=== PATIENT | male | born 1955 | race Hispanic/Latino ===

== ENCOUNTER 2019-08-05 14:49 | Emergency (ER) | payer OTHER ==
--- NOTE | 2019-08-05 17:21 | RAD REPORT ---
EXAM DESCRIPTION: RAD - Humerus Left - 08/05/2019 4:50 pm CLINICAL HISTORY: PAIN COMPARISON: No comparisons FINDINGS: Osteoarthritic changes are present, mild, in the left shoulder and left elbow. No acute fr acture or dislocation seen.
--- NOTE | 2019-08-05 17:27 | EDPHYS ---
Physician Documentation [facility] Name: Max Fisher Age: 64 yrs Sex: Male : 1955 Arrival Date: 08/05/2019 Time: 15:00 Bed 27 Private MD: ED Physician Misael Fuentes HPI: 08/05 17:05 This 64 yrs old Male presents to ER via Ambulatory with complaints of Shoulder kb Injury. 17:05 The patient or guardian complains of decreased range of motion, pain, tenderness. left kb shoulder. Context: The problem was sustained outdoors, resulted from lifting or carrying, a heavy object, The patient experiences decreased range of motion, The patient reports no obvious deformity. Onset: The symptoms/episode began/occurred just prior to arrival. Modifying factors: the symptoms are alleviated by nothing. The symptoms are aggravated by movement. Associated signs and symptoms: Pertinent positives: severe pain. Severity of symptoms: At their worst the symptoms were moderate, in the emergency department the symptoms are unchanged. Treatment prior to arrival includes: no previous treatment. The patient has not experienced similar symptoms in the past. The patient has not recently seen a physician. 17:07 Pt reports he needed to lift a box fan into his son's lifted truck and was unable to kb just lift it up so he swung it up and felt a tear in left upper arm. Historical: - Allergies: 15:16 No Known Allergies; hb - PMHx: 15:16 Diabetes - NIDDM; hb - Immunization history:: Adult Immunizations up to date. - Coronavirus screen:: The patient has NOT traveled to [place], [place], or [place] in the past 14 days. The patient has NOT had contact with known/suspected case of Coronavirus? Proceed with normal triage procedures. - Social history:: Smoking status: Patient denies any tobacco usage or history of. - Ebola Screening: : No symptoms or risks identified at this time. ROS: 17:05 Constitutional: Negative for fever, chills, and weight loss, ENT: Negative for injury, kb pain, and discharge, Neck: Negative for injury, pain, and swelling, Cardiovascular: Negative for chest pain, palpitations, and edema, Respiratory: Negative for shortness of breath, cough, wheezing, and pleuritic chest pain, Abdomen/GI: Negative for abdominal pain, nausea, vomiting, diarrhea, and constipation, Back: Negative for injury and pain, Skin: Negative for injury, rash, and discoloration, Neuro: Negative for headache, weakness, numbness, tingling, and seizure. 17:05 MS/extremity: Positive for decreased range of motion, pain, tenderness, of the left upper arm and anterior aspect of left shoulder. Exam: 17:04 Constitutional: This is a well developed, well nourished patient who is awake, alert, kb and in no acute distress. Head/Face: Normocephalic, atraumatic. ENT: Nares patent. No nasal discharge, no septal abnormalities noted. Tympanic membranes are normal and external auditory canals are clear. Oropharynx with no redness, swelling, or masses, exudates, or evidence of obstruction, uvula midline. Mucous membranes moist. Neck: Trachea midline, no thyromegaly or masses palpated, and no cervical lymphadenopathy. Supple, full range of motion without nuchal rigidity, or vertebral point tenderness. No Meningismus. Chest/axilla: Normal chest wall appearance and motion. Nontender with no deformity. No lesions are appreciated. Cardiovascular: Regular rate and rhythm with a normal S1 and S2. No gallops, murmurs, or rubs. Normal PMI, no JVD. No pulse deficits. Respiratory: Lungs have equal breath sounds bilaterally, clear to auscultation and percussion. No rales, rhonchi or wheezes noted. No increased work of breathing, no retractions or nasal flaring. Abdomen/GI: Soft, non-tender, with normal bowel sounds. No distension or tympany. No guarding or rebound. No evidence of tenderness throughout. Skin: Warm, dry with normal turgor. Normal color with no rashes, no lesions, and no evidence of cellulitis. Neuro: Awake and alert, GCS 15, oriented to person, place, time, and situation. Cranial nerves II-XII grossly intact. Motor strength 5/5 in all extremities. Sensory grossly intact. Cerebellar exam normal. Normal gait. 17:04 Musculoskeletal/extremity: Extremities: grossly normal except: noted in the anterior aspect of left shoulder and left upper arm: decreased ROM, pain, tenderness, ROM: limited active range of motion due to pain, in the anterior aspect of left shoulder, Circulation is intact in all extremities. Sensation intact. Vital Signs: 15:16 BP 152 / 84; Pulse 77; Resp 16; Temp 98.2; Pulse Ox 100% on R/A; Weight 96.62 kg; hb Height 5 ft. 10 in. (177.80 cm); Pain 8/10; 17:40 BP 142 / 80; Pulse 72; Resp 16; Pulse Ox 100% on R/A; sg 15:16 Body Mass Index 30.56 (96.62 kg, 177.80 cm) hb MDM: 16:29 Patient medically screened. kb 16:30 Data reviewed: vital signs, nurses notes. Data interpreted: Pulse oximetry: on room air kb is 100 %. Interpretation: normal. 17:06 Counseling: I had a detailed discussion with the patient and/or guardian regarding: the kb historical points, exam findings, and any diagnostic results supporting the discharge/admit diagnosis, radiology results, the need for outpatient follow up, a orthopedic surgeon, to return to the emergency department if symptoms worsen or persist or if there are any questions or concerns that arise at home. 08/05 16:48 Order name: Humerus Left; Complete Time: 17:23 EDOR 08/05 17:26 Order name: Sling; Complete Time: 17:44 kb Administered Medications: 17:40 Drug: Jamison (7.5 mg-325 mg) 1 tabs Route: PO; sg Disposition: 08/05/19 17:26 Discharged to Home. Impression: Pain in left shoulder, Pain in left upper arm. - Condition is Stable. - Discharge Instructions: Musculoskeletal Pain, Shoulder Pain, [id number]. - Prescriptions for Cyclobenzaprine 10 mg Oral Tablet - take 1 tablet by ORAL route every 8 hours As needed; 21 tablet. Diclofenac Sodium 75 mg Oral Tablet, Delayed Release (E.C.) - take 1 tablet by ORAL route 2 times per day As needed; 30 tablet. - Medication Reconciliation Form, Thank You Letter, Antibiotic Education, Prescription Opioid Use form. - Follow up: Emergency Department; When: As needed; Reason: Worsening of condition. Follow up: Private Physician; When: 2 - 3 days; Reason: Recheck today's complaints, Continuance of care, Re-evaluation by your physician. Addendum: 08/06/2019 21:17 Co-signature as Attending Physician, Misael Fuentes MD I agree with the assessment and k dr plan of care. Signatures: Dispatcher [employer] [facility] Marialuisa Moreno, ASSISTANT PROPERTY MANAGER-C ASSISTANT PROPERTY MANAGER-Ckb Oscar Garcia, RN RN sg Misael Fuentes MD MD [facility] Sally Mo, RN RN Corrections: (The following items were deleted from the chart) 08/05 16:48 16:03 Shoulder Left 2 View+RAD.RAD.BRZ ordered. [facility] 17:44 17:26 08/05/2019 17:26 Discharged to Home. Impression: Pain in left shoulder; Pain in sg left upper arm. Condition is Stable. Discharge Instructions: Musculoskeletal Pain, Shoulder Pain, [id number]-[id number]. Prescriptions for Cyclobenzaprine 10 mg Oral Tablet - take 1 tablet by ORAL route every 8 hours As needed; 21 tablet, Diclofenac Sodium 75 mg Oral Tablet, Delayed Release (E.C.) - take 1 tablet by ORAL route 2 times per day As needed; 30 tablet. and Forms are Medication Reconciliation Form, Thank You Letter, Antibiotic Education, Prescription Opioid Use. Follow up: Emergency Department; When: As needed; Reason: Worsening of condition. Follow up: Private Physician; When: 2 - 3 days; Reason: Recheck today's complaints, Continuance of care, Re-evaluation by your physician. kb
--- NOTE | 2019-08-05 17:27 | ER ---
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 Transition hb of care: patient was not received from another setting of care. Onset of symptoms was August 05, 2019. Risk Assessment: Do you want to hurt yourself or someone else? Patient reports no desire to harm self or others. Initial Sepsis Screen: Does the patient meet any 2 criteria? No. Patient's initial sepsis screen is negative. Does the patient have a suspected source of infection? No. Patient's initial sepsis screen is negative. Care prior to arrival: None. 15:15 Method Of Arrival: Ambulatory hb 15:15 Acuity: SIERRA 4 hb Historical: - Allergies: 15:16 No Known Allergies; hb - PMHx: 15:16 Diabetes - NIDDM; hb - Immunization history:: Adult Immunizations up to date. - Coronavirus screen:: The patient has NOT traveled to [place], [place], or [place] in the past 14 days. The patient has NOT had contact with known/suspected case of Coronavirus? Proceed with normal triage procedures. - Social history:: Smoking status: Patient denies any tobacco usage or history of. - Ebola Screening: : No symptoms or risks identified at this time. Screenin:00 Abuse screen: Denies threats or abuse. Denies injuries from another. Nutritional sg screening: No deficits noted. Tuberculosis screening: No symptoms or risk factors identified. Never had TB. Fall Risk None identified. Assessment: 17:00 General: Appears in no apparent distress. well groomed, well developed, well nourished, sg Behavior is calm, cooperative, appropriate for age. Pain: Pain: Complains of pain in left shoulder Quality of pain is described as aching. Neuro: Level of Consciousness is awake, alert, obeys commands, Oriented to person, place, time, Logging Engineer are equal bilaterally Moves all extremities. Cardiovascular: Patient's skin is warm and dry. Chest pain is denied. Respiratory: Airway is patent Respiratory effort is even, unlabored, Respiratory pattern is regular, symmetrical. GI: No signs and/or symptoms were reported involving the gastrointestinal system. : No signs and/or symptoms were reported regarding the genitourinary system. EENT: No signs and/or symptoms were reported regarding the EENT system. Derm: Skin is pink, warm \T\ dry. Musculoskeletal: Circulation, motion, and sensation intact. Range of motion: intact in all extremities, Reports pain in left shoulder. Vital Signs: 15:16 BP 152 / 84; Pulse 77; Resp 16; Temp 98.2; Pulse Ox 100% on R/A; Weight 96.62 kg; hb Height 5 ft. 10 in. (177.80 cm); Pain 8/10; 17:40 BP 142 / 80; Pulse 72; Resp 16; Pulse Ox 100% on R/A; sg 15:16 Body Mass Index 30.56 (96.62 kg, 177.80 cm) hb ED Course: 15:00 Patient arrived in ED. es 15:16 Triage completed. hb 15:16 Arm band placed on. hb 15:23 Marialuisa Moreno FNP-C is PHCP. kb 15:23 Misael Fuentes MD is Attending Physician. kb 16:51 Humerus Left In Process Unspecified. EDMS 16:52 Oscar Garcia, RN is Primary Nurse. sg 17:00 Patient has correct armband on for positive identification. Bed in low position. Call sg light in reach. Side rails up X2. Pulse ox on. NIBP on. Head of bed elevated. 17:40 No provider procedures requiring assistance completed. Patient did not have IV access sg during this emergency room visit. 17:40 Sling applied to left arm. applied by [employer] sg Administered Medications: 17:40 Drug: Radford (7.5 mg-325 mg) 1 tabs Route: PO; sg Outcome: 17:26 Discharge ordered by . kb 17:40 Discharged to home ambulatory, with family. sg 17:40 Condition: good 17:40 Discharge instructions given to patient, Instructed on discharge instructions, follow up and referral plans. medication usage, safety practices, Demonstrated understanding of instructions, follow-up care, medications, Prescriptions given X 2. 17:44 Patient left the ED. sg Signatures: Dispatcher [employer] [facility] Marialuisa Moreno FNP-C FNP-Oscar Parson, RN RN sg Renu Bergeron Heather, RN RN hb
[2019-08-05] MEDS ORDERED: HYDROCODONE/APAP 7.5/325 MG TAB ONE (17:34)
[2019-08-05 17:49] VITALS: BP 152/84; TEMP 98.2; O2SAT 100
== END 2019-08-05 17:44 | disposition home or self-care (01) ==
LOC: ER 14:49
DX: M25.512 Pain in left shoulder (principal); M79.622 Pain in left upper arm; X50.0XXA Overexertion from strenuous movement or load, initial encounter; Y93.9 Activity, unspecified; Y92.9 Unspecified place or not applicable
CPT/HCPCS: 99284

== ENCOUNTER 2019-10-19 13:28 | Emergency (ER) | payer OTHER ==
--- OUTSIDE RECORDS SUMMARY | 2019-10-19 14:16 | XMS REPORT ---
:1955 Author Organization [facility] t Address [address] [place] [address] Care Team Providers Name Role Phone LAURO LARIOS Unavailable Unavailable Problems This patient has no known problems. Allergies, Adverse Reactions, Alerts This patient has no known allergies or adverse reactions. Medications This patient has no known medications. Results Test Description Test Time Test Comments Text Results Atomic Results Result Comments POCT-GLUCOSE METER 2019-09-19 12:34:00 Test Item Value Reference Range Comments POC-GLUCOSE METER (BEAKER) 147 mg/dL 70-110 : Not ified RN/MD: TESTED AT [place] [address] (test code = 1538) [facility] [address]: Electrical And Instrument Engineer/Technic ml ID = [id number] for [facility] POCT-GLUCOSE [id number] 11:21:00 Test Item Value Reference Range Comments POC-GLUCOSE METER (BEAKER) 155 mg/dL 70-110 : Not ified RN/MD: TESTED AT (test code = 1538) [facility] [address] [facility] [address] : Electrical And Instrument Engineer/Technic ml ID = [id number] for Liberty Barnhart POCT-GLUCOSE [id number] 06:56:00 Test Item Value Reference Range Comments POC-GLUCOSE METER (BEAKER) 98 mg/dL 70-110 : MARLEY JOHNNY AT [facility] [address] (test code = 1538) [facility] [address]: Electrical And Instrument Engineer/Technic ml ID = [id number] for NETO QUEEN
[2019-10-19 15:09] LABS: Absolute Lymphocytes (CBC) 2.2 K/uL (0.7-4.9); Basophils % 0.6 % (0-1.3); Hematocrit 41.4 % (39.6-49.0); Lymphocytes % 21.2 % (15.3-44.8); MPV 7.6 fL (7.6-11.3); RBC Red Blood Cell Count 4.51 M/uL (4.33-5.43)
[2019-10-19] MEDS ORDERED: NA CHLORIDE 0.9% 1,000 ML ONE (15:11)
[2019-10-19 15:20] LABS: Potassium 3.9 mmol/L (3.5-5.1)
--- NOTE | 2019-10-19 16:41 | ER ---
Nurse's Notes [facility] Name: Max Fisher Age: 64 yrs Sex: Male : 1955 Arrival Date: 10/19/2019 Time: 13:30 Bed 16 Private MD: Diagnosis: Dizziness and giddiness;Dehydration;Renal Failure - Chronic Presentation: 10/18 14:05 Chief complaint: Patient states: dizziness while standing that began 2 days ago and low aa5 BP readings today, pt reports lowest reading was 71/42 at 1248 today. Pt states "I just had surgery on my left shoulder about 4 weeks ago at [facility] and I am taking muscle relaxants and pain medicine". 14:05 Coronavirus screen: Proceed with normal triage. Ebola Screen: Patient negative for aa5 fever greater than or equal to 101.5 degrees Fahrenheit, and additional compatible Ebola Virus Disease symptoms. Initial Sepsis Screen: Does the patient meet any 2 criteria? No. Patient's initial sepsis screen is negative. Does the patient have a suspected source of infection? No. Patient's initial sepsis screen is negative. Risk Assessment: Do you want to hurt yourself or someone else? Patient reports no desire to harm self or others. 14:05 Method Of Arrival: Ambulatory aa5 14:05 Onset of symptoms was October 2019. aa5 14:05 Acuity: SIERRA 3 aa5 Historical: - Allergies: 14:15 No Known Allergies; aa5 - PMHx: 14:15 Diabetes - NIDDM; Hypertension; aa5 - PSHx: 14:15 L shoulder; Right shoulder; aa5 - Immunization history:: Flu vaccine is up to date. - Social history:: Smoking status: Patient denies any tobacco usage or history of. Screenin:02 Abuse screen: Denies threats or abuse. Denies injuries from another. Nutritional ca1 screening: No deficits noted. Tuberculosis screening: No symptoms or risk factors identified. Fall Risk IV access (20 points). Assessment: 15:02 General: Appears in no apparent distress. comfortable, Behavior is calm, cooperative, ca1 appropriate for age. Pain: Denies pain. Neuro: Level of Consciousness is awake, alert, obeys commands, Oriented to person, place, time, situation, Appropriate for age Reports dizziness. Neuro: Reports. Cardiovascular: Heart tones S1 S2 present Capillary refill < 3 seconds Patient's skin is warm and dry. Respiratory: Airway is patent Respiratory effort is even, unlabored, Respiratory pattern is regular, symmetrical. GI: Abdomen is round non-distended, Bowel sounds present X 4 quads. Abd is soft and non tender X 4 quads. Reports nausea. : No signs and/or symptoms were reported regarding the genitourinary system. EENT: No signs and/or symptoms were reported regarding the EENT system. Derm: Skin is intact, is healthy with good turgor, Skin is pink, warm \\T\\ dry. Musculoskeletal: Circulation, motion, and sensation intact. Capillary refill < 3 seconds, Pt has a sling on L shoulder from a surgery a week ago. 15:43 Reassessment: Patient appears in no apparent distress at this time. Patient and/or ca1 family updated on plan of care and expected duration. Pain level reassessed. Patient is alert, oriented x 3, equal unlabored respirations, skin warm/dry/pink. 16:28 Reassessment: Patient appears in no apparent distress at this time. Patient and/or ca1 family updated on plan of care and expected duration. Pain level reassessed. Patient is alert, oriented x 3, equal unlabored respirations, skin warm/dry/pink. Dr. Fuentes at bedside. 17:23 Reassessment: Patient appears in no apparent distress at this time. Patient is alert, ca1 oriented x 3, equal unlabored respirations, skin warm/dry/pink. Patient states feeling better. Vital Signs: 14:05 BP 103 / 72; Pulse 86; Resp 18 S; Temp 98.8(O); Pulse Ox 97% on R/A; Weight 94.35 kg aa5 (R); Height 5 ft. 10 in. (177.80 cm) (R); 15:14 BP 116 / 65 Supine; Pulse 76; Resp 18 S; Pulse Ox 100% on R/A; ca1 15:16 BP 110 / 65 Sitting; Pulse 76; Resp 18 S; Pulse Ox 100% on R/A; ca1 15:18 BP 105 / 63 Standing; Pulse 76; Resp 17 S; Pulse Ox 99% on R/A; ca1 15:45 BP 107 / 70; Pulse 78; Resp 18 S; Pulse Ox 100% on R/A; ca1 16:28 BP 106 / 70; Pulse 79; Resp 17 S; Pulse Ox 98% on R/A; ca1 17:23 BP 107 / 72; Pulse 76; Resp 16 S; Pulse Ox 98% on R/A; ca1 14:05 Body Mass Index 29.84 (94.35 kg, 177.80 cm) aa5 ED Course: 13:30 Patient arrived in ED. ag5 13:49 Misael Fuentes MD is Attending Physician. kdr 14:05 Arm band placed on. aa5 14:14 Triage completed. aa5 14:41 Jaymie Stuart, RN is Primary Nurse. ca1 15:01 No provider procedures requiring assistance completed. Initial lab(s) drawn, by sc, ca1 sent to lab. Inserted saline lock: 20 gauge in right antecubital area, using aseptic technique. Blood collected. 15:02 Patient has correct armband on for positive identification. Bed in low position. Call ca1 light in reach. Side rails up X 1. Pulse ox on. NIBP on. Warm blanket given. Head of bed elevated. 17:23 IV discontinued, intact, bleeding controlled, No redness/swelling at site. Pressure ca1 dressing applied. Administered Medications: 15:25 Drug: NS 0.9% 1000 ml Route: IV; Rate: 1 bolus; Site: right antecubital; ca1 16:38 Drug: Zofran (Ondansetron) 4 mg Route: IVP; Site: right antecubital; ca1 16:42 Drug: morphine 4 mg {Note: RASS - 0.} Route: IVP; Site: right antecubital; ca1 Outcome: 16:40 Discharge ordered by . kdr 17:23 Discharged to home ambulatory, with family. ca1 17:23 Condition: stable 17:23 Discharge instructions given to patient, Instructed on discharge instructions, follow up and referral plans. Demonstrated understanding of instructions, follow-up care. 17:24 Patient left the ED. ca1 Signatures: Misael Fuentes MD MD kdr Calderon, Audri RN RN aa Jaymie Stuart RN RN ca1 Albaro Martinez 5 Corrections: (The following items were deleted from the chart) 14:15 14:05 Acuity: SIERRA 4 aa5 aa5
--- NOTE | 2019-10-19 16:41 | EDPHYS ---
Physician Documentation [facility] Name: Max Fisher Age: 64 yrs Sex: Male : 1955 Arrival Date: 10/19/2019 Time: 13:30 Bed 16 Private MD: ED Physician Misael Fuentes HPI: 10/18 14:50 This 64 yrs old Male presents to ER via Ambulatory with complaints of kdr Dizziness, Blood Pressure Problem. 14:51 The patient has been feeling poorly and has stopped eating and drinking. He had left kdr rotator cuff surgery about a month ago and states that he has hardly slept for the last three weeks.. Onset: The symptoms/episode began/occurred gradually, 4 day(s) ago. Severity of symptoms: At their worst the symptoms were moderate in the emergency department the symptoms are unchanged. The patient has not experienced similar symptoms in the past. The patient has been recently seen by a physician:. The patient states that he has had post nasal drip for the past four days and when he swallows the phlegm, he feels nauseated but contreras not vomit or have diarrhea.. Historical: - Allergies: 14:15 No Known Allergies; aa5 - PMHx: 14:15 Diabetes - NIDDM; Hypertension; aa5 - PSHx: 14:15 L shoulder; Right shoulder; aa5 - Immunization history:: Flu vaccine is up to date. - Social history:: Smoking status: Patient denies any tobacco usage or history of. ROS: 14:51 Constitutional: Negative for fever, chills, and weight loss, Eyes: Negative for injury, kdr pain, redness, and discharge, ENT: Negative for injury, pain, and discharge, Neck: Negative for injury, pain, and swelling, Cardiovascular: Negative for chest pain, palpitations, and edema, Respiratory: Negative for shortness of breath, cough, wheezing, and pleuritic chest pain, Abdomen/GI: Negative for abdominal pain, nausea, vomiting, diarrhea, and constipation, Back: Negative for injury and pain, Skin: Negative for injury, rash, and discoloration, Psych: Negative for depression, anxiety, suicide ideation, homicidal ideation, and hallucinations, Allergy/Immunology: Negative for hives, rash, and allergies, Endocrine: Negative for neck swelling, polydipsia, polyuria, polyphagia, and marked weight changes, Hematologic/Lymphatic: Negative for swollen nodes, abnormal bleeding, and unusual bruising. 14:51 MS/extremity: Positive for pain, of the anterior aspect of left shoulder, posterior aspect of left shoulder and left axilla. 14:51 Neuro: Positive for altered mental status, dizziness, weakness. Exam: 14:51 Constitutional: This is a well developed, well nourished patient who is awake, alert, kdr and in no acute distress. Head/Face: Normocephalic, atraumatic. Eyes: Pupils equal round and reactive to light, extra-ocular motions intact. Lids and lashes normal. Conjunctiva and sclera are non-icteric and not injected. Cornea within normal limits. Periorbital areas with no swelling, redness, or edema. Neck: Trachea midline, no thyromegaly or masses palpated, and no cervical lymphadenopathy. Supple, full range of motion without nuchal rigidity, or vertebral point tenderness. No Meningismus. Chest/axilla: Normal chest wall appearance and motion. Nontender with no deformity. No lesions are appreciated. Cardiovascular: Regular rate and rhythm with a normal S1 and S2. No gallops, murmurs, or rubs. Normal PMI, no JVD. No pulse deficits. Respiratory: Lungs have equal breath sounds bilaterally, clear to auscultation and percussion. No rales, rhonchi or wheezes noted. No increased work of breathing, no retractions or nasal flaring. Abdomen/GI: Soft, non-tender, with normal bowel sounds. No distension or tympany. No guarding or rebound. No evidence of tenderness throughout. Back: No spinal tenderness. No costovertebral tenderness. Full range of motion. Skin: Warm, dry with normal turgor. Normal color with no rashes, no lesions, and no evidence of cellulitis. Neuro: Awake and alert, GCS 15, oriented to person, place, time, and situation. Cranial nerves II-XII grossly intact. Motor strength 5/5 in all extremities. Sensory grossly intact. Cerebellar exam normal. Normal gait. Psych: Awake, alert, with orientation to person, place and time. Behavior, mood, and affect are within normal limits. 14:51 Musculoskeletal/extremity: The patient is in a left shoulder splint s/p rotator cuff surgery. Vital Signs: 14:05 BP 103 / 72; Pulse 86; Resp 18 S; Temp 98.8(O); Pulse Ox 97% on R/A; Weight 94.35 kg aa5 (R); Height 5 ft. 10 in. (177.80 cm) (R); 15:14 BP 116 / 65 Supine; Pulse 76; Resp 18 S; Pulse Ox 100% on R/A; ca1 15:16 BP 110 / 65 Sitting; Pulse 76; Resp 18 S; Pulse Ox 100% on R/A; ca1 15:18 BP 105 / 63 Standing; Pulse 76; Resp 17 S; Pulse Ox 99% on R/A; ca1 15:45 BP 107 / 70; Pulse 78; Resp 18 S; Pulse Ox 100% on R/A; ca1 16:28 BP 106 / 70; Pulse 79; Resp 17 S; Pulse Ox 98% on R/A; ca1 17:23 BP 107 / 72; Pulse 76; Resp 16 S; Pulse Ox 98% on R/A; ca1 14:05 Body Mass Index 29.84 (94.35 kg, 177.80 cm) aa5 MDM: 16:40 Patient medically screened. kdr 17:31 Data reviewed: vital signs, nurses notes, lab test result(s), radiologic studies. kdr Counseling: I had a detailed discussion with the patient and/or guardian regarding: the historical points, exam findings, and any diagnostic results supporting the discharge/admit diagnosis, lab results, the need for outpatient follow up. 10/18 14:50 Order name: CBC with Diff; Complete Time: 16:12 kdr 10/18 14:50 Order name: Chem 7; Complete Time: 16:12 kdr 10/18 14:50 Order name: Orthostatic Blood Pressure; Complete Time: 15:21 kdr Administered Medications: 15:25 Drug: NS 0.9% 1000 ml Route: IV; Rate: 1 bolus; Site: right antecubital; ca1 16:38 Drug: Zofran (Ondansetron) 4 mg Route: IVP; Site: right antecubital; ca1 16:42 Drug: morphine 4 mg {Note: RASS - 0.} Route: IVP; Site: right antecubital; ca1 Disposition: 10/19/19 16:40 Discharged to Home. Impression: Dizziness and giddiness, Dehydration, Renal Failure - Chronic. - Condition is Stable. - Discharge Instructions: Dehydration, Adult, Chronic Kidney Disease, Adult, [id number], Dizziness, [id number]. - Medication Reconciliation Form, Thank You Letter form. - Follow up: Private Physician; When: 2 - 3 days; Reason: If symptoms return, Further diagnostic work-up, Recheck today's complaints, Continuance of care, Re-evaluation by your physician. - Problem is new. - Symptoms have improved. Signatures: Dispatcher [employer] EDMS Misael Fuentes MD MD [facility] Melissa Varela RN RN aa5 Jaymie Stuart RN RN ca1 Corrections: (The following items were deleted from the chart) 17:24 16:40 10/19/2019 16:40 Discharged to Home. Impression: Dizziness and giddiness; ca1 Dehydration; Renal Failure - Chronic. Condition is Stable. Forms are Medication Reconciliation Form, Thank You Letter, Antibiotic Education, Prescription Opioid Use. Follow up: Private Physician; When: 2 - 3 days; Reason: If symptoms return, Further diagnostic work-up, Recheck today's complaints, Continuance of care, Re-evaluation by your physician. Problem is new. Symptoms have improved. kdr
[2019-10-19] MEDS ORDERED: MORPHINE 4 MG/ML SYR ONE (16:42)
[2019-10-19] MEDS ORDERED: ONDANSETRON 4 MG/2 ML VIAL ONE (16:43)
[2019-10-19 17:30] VITALS: TEMP 98.8
[2019-10-19 17:37] VITALS: O2SAT 98
[2019-10-19 17:38] VITALS: BP 107/72
== END 2019-10-19 17:24 | disposition home or self-care (01) ==
LOC: ER 13:28
DX: E86.0 Dehydration (principal); I12.9 Hypertensive chronic kidney disease with stage 1 through stage 4 chronic kidney disease, or unspecified chronic kidney disease; E11.22 Type 2 diabetes mellitus with diabetic chronic kidney disease; N18.9 Chronic kidney disease, unspecified
CPT/HCPCS: 85025; 80048; 36415; 96375; 96374; 99284; J7030; J2405